=== PATIENT | female | born 1935 | race Caucasian/White ===

== ENCOUNTER 2022-03-06 11:04 | Inpatient (IN) | payer MEDICARE, BC ==
[~2022-03-06 11:04] MED LIST: Iopamidol-370 76% 500 ML 1 ML ONE
[2022-03-06 11:49] LABS: #Eosinphils 0.1 thou/uL (0.0-0.7); #Lymphocytes 1.1 thou/uL (1.20-3.40); #Monocytes 0.7 thou/uL (0.11-0.59); #Neutrophils 4.9 thou/uL (1.40-6.50); %Basophils 0.4 % (0.0-1.0); %Lymphocytes 16.2 % (21.0-51.0); %Monocytes 9.7 % (0.0-10.0); %Neutrophils 72.6 % (42.0-75.0); Mean Corpuscular HGB CONC 30.5 g/dL (32.0-36.0); Mean Corpuscular Hemoglobin 29.3 pg (27.0-31.0); Mean Platelet Volume 8.2 fL (7.4-10.4); Platelet Count 248 thou/uL (130-400); RBC Distribution Width 14.2 % (11.5-14.5); White Blood Cell (WBC) Count 6.7 thou/uL (4.8-10.8)
[2022-03-06 12:12] LABS: ALT (SGPT) Less than 7 U/L (8-55); AST (SGOT) 18 U/L (5-34); Alkaline Phosphatase 224 U/L (40-110); Anion Gap 15 mmol/L (10-20); BUN (Urea Nitrogen) 17 mg/dL (9.8-20.1); Bilirubin, Total 0.5 mg/dL (0.2-1.2); CK (CPK) 16 U/L (29-168); Calc. Creatinine Clearance 0 mL/min (70-130); Calcium 9.2 mg/dL (7.8-10.44); Carbon Dioxide 25 mmol/L (23-31); Chloride 102 mmol/L (98-107); Globulin 4.1 g/dL (2.4-3.5); Glucose 89 mg/dL (83-110); Potassium 4.7 mmol/L (3.5-5.1); Protein, Total 7.1 g/dL (5.8-8.1); Sodium 137 mmol/L (136-145)
[2022-03-06] MEDS ORDERED: Senokot S 8.6-50 MG TAB PO PRN (13:20)
[2022-03-06] MEDS ORDERED: Ondansetron PF 4 MG/2 ML Vial IVP PRN (13:20)
[2022-03-06] MEDS ORDERED: Acetaminophen 325 MG TAB PO PRN (13:20)
[2022-03-06] MEDS ORDERED: HYDROcodone/Acetaminophen 5/325 mg Tablet PO PRN ×2 (13:20→15:06)
[2022-03-06] MEDS ORDERED: Calcium Carbonate 500 MG ChewTAB PO PRN (13:20)
[2022-03-06] MEDS ORDERED: Furosemide 40 MG/4 ML VIAL SLOW IVP SCH (13:30)
[2022-03-06] MEDS: Morphine 2 MG/ML VIAL SLOW IVP PRN (16:34)
[2022-03-06] MEDS ORDERED: Ipratropium Bromide 2.5 ml Neb NEB SCH (19:00)
[2022-03-06] MEDS: Aspirin 81 mg Enteric Coated Tablet PO SCH (20:39)
[2022-03-06] MEDS: Atorvastatin Calcium 40 MG TAB PO SCH (20:39)
[2022-03-07 00:13] LABS: SARS-CoV-2 PCR by NAA Not Detected (NotDetected)
[2022-03-07 03:38] LABS: #Eosinphils 0.1 thou/uL (0.0-0.7); #Lymphocytes 0.9 thou/uL (1.20-3.40); #Monocytes 0.7 thou/uL (0.11-0.59); #Neutrophils 4.2 thou/uL (1.40-6.50); %Basophils 0.5 % (0.0-1.0); %Eosinophils 0.9 % (0.0-10.0); %Lymphocytes 14.8 % (21.0-51.0); %Monocytes 11.2 % (0.0-10.0); %Neutrophils 72.6 % (42.0-75.0); Hemoglobin 11.1 g/dL (12.0-16.0); Mean Corpuscular HGB CONC 30.8 g/dL (32.0-36.0); Mean Corpuscular Hemoglobin 29.2 pg (27.0-31.0); Mean Corpuscular Volume 94.9 fL (78.0-98.0); Mean Platelet Volume 8.2 fL (7.4-10.4); Platelet Count 245 thou/uL (130-400); RBC Distribution Width 14.2 % (11.5-14.5); Red Blood Cell (RBC) Count 3.79 mill/uL (4.20-5.40); White Blood Cell (WBC) Count 5.8 thou/uL (4.8-10.8)
[2022-03-07 03:47] LABS: INR-International Normal Ratio 1.2; Prothrombin Time 14.9 sec (12.0-14.7)
[2022-03-07 03:56] LABS: ALT (SGPT) 8 U/L (8-55); AST (SGOT) 19 U/L (5-34); Albumin 2.7 g/dL (3.4-4.8); Alkaline Phosphatase 194 U/L (40-110); Anion Gap 13 mmol/L (10-20); BUN (Urea Nitrogen) 21 mg/dL (9.8-20.1); Bilirubin, Total 0.4 mg/dL (0.2-1.2); Calc. Creatinine Clearance 23 mL/min (70-130); Calcium 8.8 mg/dL (7.8-10.44); Carbon Dioxide 28 mmol/L (23-31); Chloride 99 mmol/L (98-107); Globulin 3.6 g/dL (2.4-3.5); Glucose 89 mg/dL (83-110); Potassium 4.2 mmol/L (3.5-5.1); Protein, Total 6.3 g/dL (5.8-8.1); Sodium 136 mmol/L (136-145)
[2022-03-07] MEDS: Morphine 2 MG/ML VIAL SLOW IVP PRN ×2 (04:39→13:20)
[2022-03-07] MEDS: Enoxaparin Sodium 30 MG/0.3 ML SYRINGE SC SCH (08:26)
[2022-03-07] MEDS ORDERED: Non-Formulary Item 1 EACH (Tiotropium Bromide 4 GM Inhaler) IH SCH (09:00)
[2022-03-07] MEDS ORDERED: Furosemide 40 MG/4 ML VIAL SLOW IVP SCH (09:00)
[2022-03-07] MEDS ORDERED: PROPOFOL 200 MG/20 ML VIAL ONE (09:51)
[2022-03-07] MEDS ORDERED: Promethazine HCl 25 MG/ML VIAL IVPB PRN (10:25)
[2022-03-07] MEDS ORDERED: Promethazine HCl 25 MG/ML VIAL IM PRN (10:25)
[2022-03-07] MEDS ORDERED: Ondansetron HCl/PF 4 MG/2 ML Vial IVP PRN (10:25)
[2022-03-07] MEDS ORDERED: Morphine Sulfate 2 MG/ML SYRINGE SLOW IVP PRN (10:25)
[2022-03-07] MEDS ORDERED: Morphine 2 MG/ML VIAL ONE (10:30)
[2022-03-07] MEDS: Potassium Chloride 20 MEQ TAB PO SCH (11:45)
[2022-03-07] MEDS: Cholecalciferol 1,000 UNITS (25 MCG) TAB PO SCH (11:45)
[2022-03-07 13:52] VITALS: BMI 16.7
[2022-03-07] MEDS ORDERED: HYDROcodone/Acetaminophen 5/325 mg Tablet PO PRN (19:24)
[2022-03-07] MEDS ORDERED: Morphine 4 MG/ML VIAL SLOW IVP PRN (19:27)
[2022-03-07] MEDS: Atorvastatin Calcium 40 MG TAB PO SCH (21:06)
[2022-03-07] MEDS: Aspirin 81 mg Enteric Coated Tablet PO SCH (21:06)
[2022-03-08 04:11] LABS: Anion Gap 14 mmol/L (10-20); BUN (Urea Nitrogen) 19 mg/dL (9.8-20.1); Calc. Creatinine Clearance 22 mL/min (70-130); Carbon Dioxide 26 mmol/L (23-31); Chloride 101 mmol/L (98-107); Glucose 107 mg/dL (83-110); Potassium 4.9 mmol/L (3.5-5.1); Sodium 136 mmol/L (136-145)
[2022-03-08] MEDS: Potassium Chloride 20 MEQ TAB PO SCH (08:21)
[2022-03-08] MEDS: Enoxaparin Sodium 30 MG/0.3 ML SYRINGE SC SCH (08:21)
[2022-03-08] MEDS: HYDROcodone/Acetaminophen 5/325 mg Tablet PO PRN ×2 (08:23→13:58)
[2022-03-08 10:58] VITALS: TEMP 98.8
[2022-03-08] MEDS: Cholecalciferol 1,000 UNITS (25 MCG) TAB PO SCH (11:58)
[2022-03-08 23:57] VITALS: BP 123/82
== END 2022-03-08 18:05 | disposition home health service (06) | DRG 180 ==
LOC: ERS 11:04 → IMCU/EMU 13:23
PROVIDERS: ADMIT Family Medicine; ATTEND Family Medicine
PROC: 0W993ZZ Drainage of Right Pleural Cavity, Percutaneous Approach (ICD-10-PCS; principal; 2022-03-07)
DX: C34.91 Malignant neoplasm of unspecified part of right bronchus or lung (principal); J96.21 Acute and chronic respiratory failure with hypoxia; J94.8 Other specified pleural conditions; I50.32 Chronic diastolic (congestive) heart failure; I13.0 Hypertensive heart and chronic kidney disease with heart failure and stage 1 through stage 4 chronic kidney disease, or unspecified chronic kidney disease; J91.0 Malignant pleural effusion; F17.210 Nicotine dependence, cigarettes, uncomplicated; Z66 Do not resuscitate; J44.9 Chronic obstructive pulmonary disease, unspecified; E78.5 Hyperlipidemia, unspecified; N18.30 Chronic kidney disease, stage 3 unspecified; K21.9 Gastro-esophageal reflux disease without esophagitis; M06.9 Rheumatoid arthritis, unspecified; Z99.81 Dependence on supplemental oxygen; Z92.3 Personal history of irradiation; Z88.0 Allergy status to penicillin; Z88.8 Allergy status to other drugs, medicaments and biological substances; Z79.82 Long term (current) use of aspirin; Z90.49 Acquired absence of other specified parts of digestive tract; Z90.710 Acquired absence of both cervix and uterus; Z95.5 Presence of coronary angioplasty implant and graft
CPT/HCPCS: 36415; 71045; 71260; 80048; 80053; 82550; 83880; 84484; 85025; 85610; 93005; 94640; C1729; J1650; J1940; J2270; J2704; J7620; Q9967; U0003; U0005

== ENCOUNTER 2022-04-09 10:15 | Outpatient (CLI) | payer MEDICARE, BC | END 2022-04-09 10:16 | disposition home or self-care (01) | LOC: PET 10:15 | PROVIDERS: ATTEND Internal Medicine Hematology & Oncology | DX: C34.2 Malignant neoplasm of middle lobe, bronchus or lung (principal); C79.51 Secondary malignant neoplasm of bone | CPT/HCPCS: 78815; A9552 ==